=== PATIENT | male | born 2000 | race Caucasian/White ===

== ENCOUNTER 2024-02-23 10:13 | Emergency (ER) | payer SELFPAY | END 2024-02-23 10:58 | disposition home or self-care (01) | LOC: MW.ED 10:13 | DX: S46.911A Strain of unspecified muscle, fascia and tendon at shoulder and upper arm level, right arm, initial encounter (principal); X50.1XXA Overexertion from prolonged static or awkward postures, initial encounter | CPT/HCPCS: 99283 ==